=== PATIENT | female | born 1965 | race Caucasian/White ===

== ENCOUNTER → 2021-03-31 | Outpatient (CLI) | payer BC ==
[2015-04-16 14:47] VITALS: BP 147/87
[~2021-03-31] MED LIST: Aspirin PO; LISI5TAB PO; LORA1TAB47 PO; MULT-245 PO; Metoprolol Tartrate PO; SIMV20TA PO
--- NOTE | 2021-03-31 16:33 | KCIC ---
Examination: MRI of the right knee without contrast HISTORY: Right knee pain, fall COMPARISON: None available TECHNIQUE: Multiplanar, multisequence MR imaging of the right knee without contrast. FINDINGS: The anterior cruciate ligament. Posterior cruciate ligament appears intact. There is horizontal incre ased signal identified in the body and posterior horn of the medial meniscus with blunting and increa sed signal identified in the posterior root of the medial meniscus likely tear. The lateral meniscus appears intact. The medial collateral ligament, lateral collateral ligamentous complex including the fibular collateral, biceps femoris tendon, popliteus tendon appears intact. The medial, lateral retinaculum appears intact. Small knee joint effusion. Moderate-sized popliteal c yst identified. Moderate joint space loss identified in the medial, lateral, patellofemoral compartments. The extenso r mechanism is intact. There is deep fissuring of cartilage identified in the medial, lateral, patell ofemoral compartments. IMPRESSION: 1. Horizontal tear of the posterior horn of the medial meniscus with tear of the posterior root of t he medial meniscus. 2. Small knee joint effusion with moderate-sized popliteal cyst. 3. Grade II chondromalacia medial, lateral, patellofemoral compartments. Electronically signed by: Omid Kaur MD (03/31/2021 4:31 PM) [id number]
== END ==
LOC: KCIC MRI 15:18
PROVIDERS: ATTEND Family Medicine
DX: M25.461 Effusion, right knee (principal)
CPT/HCPCS: 73721